=== PATIENT | female | born 2000 | race African-American/Black ===

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

== ENCOUNTER 2019-07-02 04:36 | Emergency (ER) | payer SELFPAY ==
[~2019-07-02] VITALS: Ht 160 cm; Wt 73.0 kg
[2019-07-02] MEDS ORDERED: LIDOCAINE HCL 1% 20ML VIAL (Pyxis) INJ INFIL ONE (06:30)
[2019-07-02] MEDS ORDERED: CEFTRIAXONE SODIUM 1 G/VIAL IM ONE (06:30)
[2019-07-02] MEDS ORDERED: DIPHENHYDRAMINE 50MG CAPSULE PO ONE (06:30)
[2019-07-02 06:53] VITALS: BP 121/61
== END 2019-07-02 06:53 | disposition home or self-care (01) ==
LOC: ER 04:36
DX: L03.213 Periorbital cellulitis (principal); Z88.2 Allergy status to sulfonamides; Z88.8 Allergy status to other drugs, medicaments and biological substances
CPT/HCPCS: 96372; 99283; J0696; J3490; Q0163